=== PATIENT | male | born 1995 | race Hispanic/Latino ===

== ENCOUNTER 2017-01-17 09:45 | Emergency (ER) | payer SELFPAY ==
[~2017-01-17] VITALS: Ht 182.9 cm; Wt 90.9 kg
[2017-01-17 10:23] LABS: HEMATOCRIT 47.1 % (39.0-50.0); HEMOGLOBIN 15.9 g/dl (14.0-18.0); IMMATURE GRANULOCYTES 0.5 % (0.0-1.0); MEAN CELL VOLUME 82.5 fL CALC (80.0-100.0); MEAN CORPUSCULAR HGB 27.8 pG CALC (26.0-32.0); MEAN CORPUSCULAR HGB CONC 33.8 g/L CALC (32.0-36.0); NEUT# 14.57 thou/uL (1.82-7.42); RED BLOOD COUNT 5.71 mill/uL (4.70-6.10); RED CELL DISTRI WIDTH 12.7 % (11.5-15.5)
[2017-01-17 10:44] LABS: ALBUMIN 5.1 g/dL (3.2-5.0); ALKALINE PHOSPHATASE 114 u/l (38-126); AMYLASE 60 u/l (30-110); ANION GAP 19 (6-22 (CALC)); BILIRUBIN, TOTAL 0.8 mg/dL (0.0-1.4); BUN 12 mg/dL (9-20); BUN/CREATININE RATIO 15 (12-20 (CALC)); CALCIUM 10.1 mg/dL (8.4-10.2); CARBON DIOXIDE 22 mmol/l (22-30); CHLORIDE 105 mmol/l (95-108); CREATININE 0.8 mg/dL (0.7-1.3); GFR > 60 ML/MIN (>=60 (CALC)); GFR FOR AFR.AMER. > 60 ML/MIN (>=60 (CALC)); GLUCOSE 101 mg/dL (75-110); LIPASE 38 u/l (23-300); POTASSIUM 4.6 mmol/l (3.5-5.1); SGOT/AST 28 u/l (17-59); SGPT/ALT 38 u/l (21-72); SODIUM 142 mmol/l (137-146); TOTAL PROTEIN 9.5 g/dL (6.3-8.2)
[2017-01-17] MEDS ORDERED: ZOFRAN ODT4 MG PO (12:27)
[2017-01-17] MEDS ORDERED: CIPROFLOXACN500 MG PO (12:27)
[2017-01-17 12:28] VITALS: BP 139/63
== END 2017-01-17 12:41 | disposition home or self-care (01) | DRG 392 ==
LOC: ED 09:45
PROVIDERS: Emergency Medicine
DX: K52.9 Noninfective gastroenteritis and colitis, unspecified (principal)
CPT/HCPCS: Q9967

== ENCOUNTER 2017-01-30 14:40 | Emergency (ER) | payer SELFPAY ==
[~2017-01-30] VITALS: Ht 182.9 cm; Wt 109.0 kg
[~2017-01-30 14:40] MED LIST: CIPROFLOXACN500 MG PO; ZOFRAN ODT4 MG PO
[2017-01-30] MEDS ORDERED: AFRIN 12 HOUR0.05 % (15:07)
[2017-01-30] MEDS ORDERED: MOTRIN800 MG PO (15:07)
[2017-01-30 15:15] VITALS: BP 102/68
== END 2017-01-30 15:15 | disposition home or self-care (01) | DRG 153 ==
LOC: ED 14:40
DX: J06.9 Acute upper respiratory infection, unspecified (principal)

== ENCOUNTER 2018-06-15 10:24 | Emergency (ER) | payer SELFPAY ==
[~2018-06-15] VITALS: Ht 182.9 cm; Wt 100.0 kg
[~2018-06-15 10:24] MED LIST changes: +AFRIN 12 HOUR0.05 %; +MOTRIN800 MG PO
[2018-06-15 11:25] LABS: HEMOGLOBIN 14.9 g/dl (14.0-18.0); IMMATURE GRANULOCYTES 0.5 % (0.0-5.0); MEAN CELL VOLUME 83.7 fL CALC (80.0-100.0); MEAN CORPUSCULAR HGB 28.3 pG CALC (26.0-32.0); MEAN CORPUSCULAR HGB CONC 33.9 g/L CALC (32.0-36.0); NEUT# 14.7 thou/uL (1.82-7.42); RED BLOOD COUNT 5.26 mill/uL (4.70-6.10); RED CELL DISTRI WIDTH 12.5 % (11.5-15.5)
[2018-06-15 11:35] LABS: ALBUMIN 4.8 g/dL (3.2-5.0); ALKALINE PHOSPHATASE 75 u/l (38-126); ANION GAP 19 (6-22 (CALC)); BILIRUBIN, TOTAL 1.7 mg/dL (0.0-1.4); BUN 14 mg/dL (9-20); BUN/CREATININE RATIO 17 (12-20 (CALC)); CARBON DIOXIDE 20 mmol/l (22-30); CHLORIDE 108 mmol/l (95-108); CREATININE 0.9 mg/dL (0.7-1.3); GFR > 60 ML/MIN (>=60 (CALC)); GFR FOR AFR.AMER. > 60 ML/MIN (>=60 (CALC)); POTASSIUM 4.2 mmol/l (3.5-5.1); SGOT/AST 18 u/l (17-59); SGPT/ALT 33 u/l (21-72); SODIUM 142 mmol/l (137-146); TOTAL PROTEIN 8.6 g/dL (6.3-8.2)
[2018-06-15 12:54] LABS: URINE BILIRUBIN - DIPSTICK NEGATIVE (NEGATIVE); URINE BLOOD DIPSTICK LARGE (NEGATIVE); URINE COLOR YELLOW; URINE GLUCOSE - DIPSTICK NEGATIVE (NEGATIVE); URINE KETONE NEGATIVE (NEGATIVE); URINE LEUK ESTERASE NEGATIVE (NEGATIVE); URINE NITRITE - DIPSTICK NEGATIVE (Negative); URINE PROTEIN - DIPSTICK NEGATIVE (NEG-TRACE); URINE SPECIFIC GRAVITY 1.025; URINE UROBILINOGEN - DIPSTICK 0.2 E.U./dL (0.2)
[2018-06-15 12:55] LABS: URINE CLARITY SL CLOUDY
[2018-06-15 12:57] LABS: URINE MUCUS MANY hpf (NONE-FEW)
[2018-06-15] MEDS ORDERED: Levaquin PO (13:12)
[2018-06-15 13:38] VITALS: BP 115/58
== END 2018-06-15 14:05 | disposition home or self-care (01) | DRG 153 ==
LOC: ED 10:24
DX: H66.93 Otitis media, unspecified, bilateral (principal); M54.9 Dorsalgia, unspecified

== ENCOUNTER 2018-12-08 11:46 | Emergency (ER) | payer OTHER ==
[~2018-12-08] VITALS: Ht 182.9 cm; Wt 100.0 kg
[~2018-12-08 11:46] MED LIST changes: +Levaquin PO
[2018-12-08 12:31] LABS: HEMATOCRIT 42.5 % (39.0-50.0); HEMOGLOBIN 14.3 g/dl (14.0-18.0); IMMATURE GRANULOCYTES 0.2 % (0.0-5.0); MEAN CELL VOLUME 82.5 fL CALC (80.0-100.0); MEAN CORPUSCULAR HGB 27.8 pG CALC (26.0-32.0); MEAN CORPUSCULAR HGB CONC 33.6 g/L CALC (32.0-36.0); NEUT# 3.17 thou/uL (1.82-7.42); RED BLOOD COUNT 5.15 mill/uL (4.70-6.10); RED CELL DISTRI WIDTH 12.6 % (11.5-15.5)
[2018-12-08 12:46] LABS: ALBUMIN 4.5 g/dL (3.2-5.0); ALKALINE PHOSPHATASE 70 u/l (38-126); ANION GAP 16 (6-22 (CALC)); BILIRUBIN, TOTAL 2.1 mg/dL (0.0-1.4); BUN 13 mg/dL (9-20); BUN/CREATININE RATIO 16 (12-20 (CALC)); CARBON DIOXIDE 22 mmol/l (22-30); CHLORIDE 104 mmol/l (95-108); CREATININE 0.8 mg/dL (0.7-1.3); GFR > 60 ML/MIN (>=60 (CALC)); GFR FOR AFR.AMER. > 60 ML/MIN (>=60 (CALC)); POTASSIUM 4.2 mmol/l (3.5-5.1); SGOT/AST 24 u/l (17-59); SODIUM 137 mmol/l (137-146)
[2018-12-08] MEDS ORDERED: ZOFRAN ODT4 MG PO (12:52)
[2018-12-08 13:08] VITALS: BP 113/59
== END 2018-12-08 13:08 | disposition home or self-care (01) ==
LOC: ED 11:46
PROVIDERS: Family Medicine
DX: K52.9 Noninfective gastroenteritis and colitis, unspecified (principal); R11.2 Nausea with vomiting, unspecified; R19.7 Diarrhea, unspecified; R51 Headache; R10.13 Epigastric pain

== ENCOUNTER 2019-01-09 17:22 | Emergency (ER) | payer SELFPAY ==
[~2019-01-09] VITALS: Ht 182.9 cm; Wt 105.0 kg
[2019-01-09] MEDS ORDERED: KEFLEX500 M1 PO (18:15)
[2019-01-09 18:30] VITALS: BP 115/64
== END 2019-01-09 18:30 | disposition home or self-care (01) | DRG 605 ==
LOC: ED 17:22
PROC: 0HQGXZZ Repair Left Hand Skin, External Approach (ICD-10-PCS; principal; 2019-01-09)
DX: S61.211A Laceration without foreign body of left index finger without damage to nail, initial encounter (principal); W26.0XXA Contact with knife, initial encounter; Y93.89 Activity, other specified

== ENCOUNTER 2019-02-05 15:02 | Emergency (ER) | payer OTHER ==
[~2019-02-05] VITALS: Ht 182.9 cm; Wt 100.0 kg
[~2019-02-05 15:02] MED LIST changes: +KEFLEX500 M1 PO
[2019-02-05 16:19] LABS: HEMATOCRIT 45.4 % (39.0-50.0); HEMOGLOBIN 15.2 g/dl (14.0-18.0); IMMATURE GRANULOCYTES 0.6 % (0.0-5.0); MEAN CORPUSCULAR HGB 27.8 pG CALC (26.0-32.0); MEAN CORPUSCULAR HGB CONC 33.5 g/L CALC (32.0-36.0); NEUT# 9.13 thou/uL (1.82-7.42); RED BLOOD COUNT 5.47 mill/uL (4.70-6.10); RED CELL DISTRI WIDTH 12.9 % (11.5-15.5)
[2019-02-05 16:42] LABS: ALBUMIN 4.7 g/dL (3.2-5.0); ALKALINE PHOSPHATASE 85 u/l (38-126); ANION GAP 14 (6-22 (CALC)); BUN 11 mg/dL (9-20); BUN/CREATININE RATIO 15 (12-20 (CALC)); CARBON DIOXIDE 23 mmol/l (22-30); CHLORIDE 105 mmol/l (95-108); CREATININE 0.7 mg/dL (0.7-1.3); GFR > 60 ML/MIN (>=60 (CALC)); GFR FOR AFR.AMER. > 60 ML/MIN (>=60 (CALC)); LIPASE 35 u/l (23-300); POTASSIUM 3.9 mmol/l (3.5-5.1); SGOT/AST 28 u/l (17-59); SODIUM 139 mmol/l (137-146); TOTAL PROTEIN 8.3 g/dL (6.3-8.2)
[2019-02-05 17:42] LABS: URINE BILIRUBIN - DIPSTICK NEGATIVE (NEGATIVE); URINE BLOOD DIPSTICK MODERATE (NEGATIVE); URINE COLOR YELLOW; URINE GLUCOSE - DIPSTICK NEGATIVE (NEGATIVE); URINE KETONE NEGATIVE (NEGATIVE); URINE LEUK ESTERASE NEGATIVE (NEGATIVE); URINE NITRITE - DIPSTICK NEGATIVE (Negative); URINE PROTEIN - DIPSTICK NEGATIVE (NEG-TRACE); URINE UROBILINOGEN - DIPSTICK 0.2 E.U./dL (0.2)
[2019-02-05 17:57] LABS: URINE SQUAMOUS EPITHELIAL CELL FEW EPI/hpf (0-FEW)
[2019-02-05] MEDS ORDERED: RANITIDINE150 M1 PO (17:57)
[2019-02-05 18:10] VITALS: BP 111/57
== END 2019-02-05 18:10 | disposition home or self-care (01) ==
LOC: ED 15:02
PROVIDERS: Family Medicine
DX: K29.70 Gastritis, unspecified, without bleeding (principal); R31.9 Hematuria, unspecified; R10.13 Epigastric pain

== ENCOUNTER 2020-07-20 05:47 | Emergency (ER) | payer OTHER ==
[~2020-07-20] VITALS: Ht 182.9 cm; Wt 100.0 kg
[~2020-07-20 05:47] MED LIST changes: +RANITIDINE150 M1 PO
[2020-07-20 06:40] LABS: HEMATOCRIT 42.7 % (39.0-50.0); HEMOGLOBIN 14.1 g/dl (14.0-18.0); IMMATURE GRANULOCYTES 0.4 % (0.0-5.0); MEAN CELL VOLUME 84.1 fL CALC (80.0-100.0); MEAN CORPUSCULAR HGB 27.8 pG CALC (26.0-32.0); NEUT# 3.17 thou/uL (1.82-7.42); RED BLOOD COUNT 5.08 mill/uL (4.70-6.10)
[2020-07-20 06:54] LABS: ALBUMIN 4.5 g/dL (3.2-5.0); ALKALINE PHOSPHATASE 67 u/l (38-126); AMYLASE 54 u/l (30-110); ANION GAP 12 (6-22 (CALC)); BILIRUBIN, TOTAL 1.4 mg/dL (0.0-1.4); BUN 10 mg/dL (9-20); BUN/CREATININE RATIO 12 (12-20 (CALC)); CARBON DIOXIDE 23 mmol/l (22-30); CHLORIDE 104 mmol/l (95-108); CREATININE 0.8 mg/dL (0.7-1.3); GFR > 60 ML/MIN (>=60 (CALC)); GFR FOR AFR.AMER. > 60 ML/MIN (>=60 (CALC)); LIPASE 49 u/l (23-300); POTASSIUM 4.6 mmol/l (3.5-5.1); SGOT/AST 35 u/l (17-59); SODIUM 135 mmol/l (137-146); TOTAL PROTEIN 8.2 g/dL (6.3-8.2)
[2020-07-20] MEDS ORDERED: LOMOTIL2.5 MG PO (07:16)
[2020-07-20 07:20] VITALS: BP 115/64
== END 2020-07-20 07:31 | disposition home or self-care (01) ==
LOC: ED 05:47
PROVIDERS: Family Medicine
DX: K52.9 Noninfective gastroenteritis and colitis, unspecified (principal)

== ENCOUNTER 2020-09-03 13:04 | Emergency (ER) | payer OTHER ==
[~2020-09-03] VITALS: Ht 182.9 cm; Wt 100.0 kg
[~2020-09-03 13:04] MED LIST changes: +LOMOTIL2.5 MG PO
[2020-09-03 13:56] LABS: URINE BILIRUBIN - DIPSTICK NEGATIVE (NEGATIVE); URINE BLOOD DIPSTICK MODERATE (NEGATIVE); URINE COLOR YELLOW; URINE GLUCOSE - DIPSTICK NEGATIVE (NEGATIVE); URINE KETONE NEGATIVE (NEGATIVE); URINE LEUK ESTERASE NEGATIVE (Negative); URINE NITRITE - DIPSTICK NEGATIVE (Negative); URINE PROTEIN - DIPSTICK NEGATIVE (NEG-TRACE); URINE SPECIFIC GRAVITY 1.025; URINE UROBILINOGEN - DIPSTICK 0.2 E.U./dL (0.2)
[2020-09-03 13:57] LABS: URINE CLARITY SL CLOUDY
[2020-09-03 14:03] LABS: HEMATOCRIT 46.7 % (39.0-50.0); HEMOGLOBIN 15.8 g/dl (14.0-18.0); IMMATURE GRANULOCYTES 0.4 % (0.0-5.0); MEAN CELL VOLUME 82.8 fL CALC (80.0-100.0); MEAN CORPUSCULAR HGB CONC 33.8 g/dL CAL (32.0-36.0); NEUT# 11.43 thou/uL (1.82-7.42); RED BLOOD COUNT 5.64 mill/uL (4.70-6.10); RED CELL DISTRI WIDTH 12.9 % (11.5-15.5)
[2020-09-03 14:35] LABS: ALBUMIN 4.7 g/dL (3.2-5.0); ALKALINE PHOSPHATASE 78 u/l (38-126); ANION GAP 13 (6-22 (CALC)); BILIRUBIN, TOTAL 1.1 mg/dL (0.0-1.4); BUN 12 mg/dL (9-20); BUN/CREATININE RATIO 14 (12-20 (CALC)); CARBON DIOXIDE 26 mmol/l (22-30); CHLORIDE 104 mmol/l (95-108); CREATININE 0.9 mg/dL (0.7-1.3); GFR > 60 ML/MIN (>=60 (CALC)); GFR FOR AFR.AMER. > 60 ML/MIN (>=60 (CALC)); LIPASE 44 u/l (23-300); POTASSIUM 4.1 mmol/l (3.5-5.1); SGOT/AST 24 u/l (17-59); SODIUM 139 mmol/l (137-146); TOTAL PROTEIN 8.7 g/dL (6.3-8.2)
[2020-09-03] MEDS ORDERED: ZOFRAN4 MG/TAB PO (15:39)
[2020-09-03 16:04] VITALS: BP 117/51
== END 2020-09-03 16:14 | disposition home or self-care (01) ==
LOC: ED 13:04
DX: K29.70 Gastritis, unspecified, without bleeding (principal)

== ENCOUNTER 2020-10-08 10:50 | Emergency (ER) | payer OTHER ==
[~2020-10-08] VITALS: Ht 182.9 cm; Wt 108.0 kg
[~2020-10-08 10:50] MED LIST changes: +ZOFRAN4 MG/TAB PO
[2020-10-08 11:23] LABS: HEMATOCRIT 49.2 % (39.0-50.0); IMMATURE GRANULOCYTES 0.3 % (0.0-5.0); MEAN CELL VOLUME 83.8 fL CALC (80.0-100.0); MEAN CORPUSCULAR HGB 27.3 pG CALC (26.0-32.0); MEAN CORPUSCULAR HGB CONC 32.5 g/dL CAL (32.0-36.0); NEUT# 8.82 thou/uL (1.82-7.42); RED BLOOD COUNT 5.87 mill/uL (4.70-6.10); RED CELL DISTRI WIDTH 12.8 % (11.5-15.5)
[2020-10-08 11:50] LABS: ALBUMIN 4.9 g/dL (3.2-5.0); ALKALINE PHOSPHATASE 90 u/l (38-126); ANION GAP 16 (6-22 (CALC)); BUN 14 mg/dL (9-20); BUN/CREATININE RATIO 15 (12-20 (CALC)); CARBON DIOXIDE 24 mmol/l (22-30); CHLORIDE 104 mmol/l (95-108); CREATININE 0.9 mg/dL (0.7-1.3); GFR > 60 ML/MIN (>=60 (CALC)); GFR FOR AFR.AMER. > 60 ML/MIN (>=60 (CALC)); LIPASE 40 u/l (23-300); POTASSIUM 4.2 mmol/l (3.5-5.1); SGOT/AST 24 u/l (17-59); SODIUM 140 mmol/l (137-146); TOTAL PROTEIN 8.7 g/dL (6.3-8.2)
[2020-10-08 11:53] LABS: BILIRUBIN, TOTAL 1.9 mg/dL (0.0-1.4)
[2020-10-08 12:39] LABS: URINE BILIRUBIN - DIPSTICK NEGATIVE (NEGATIVE); URINE BLOOD DIPSTICK MODERATE (NEGATIVE); URINE COLOR YELLOW; URINE GLUCOSE - DIPSTICK NEGATIVE (NEGATIVE); URINE KETONE NEGATIVE (NEGATIVE); URINE LEUK ESTERASE NEGATIVE (NEGATIVE); URINE NITRITE - DIPSTICK NEGATIVE (Negative); URINE PH 5.5 (4.5-8.0); URINE PROTEIN - DIPSTICK NEGATIVE (NEG-TRACE); URINE SPECIFIC GRAVITY >=1.030; URINE UROBILINOGEN - DIPSTICK 0.2 E.U./dL (0.2)
[2020-10-08] MEDS ORDERED: ONDANSETRON4 MG PO ×2 (13:05→13:06)
[2020-10-08] MEDS ORDERED: PROTONIX40 M2 PO (13:10)
[2020-10-08 13:16] VITALS: BP 121/75
== END 2020-10-08 13:18 | disposition home or self-care (01) ==
LOC: ED 10:50
PROVIDERS: Family Medicine
DX: R10.13 Epigastric pain (principal)
CPT/HCPCS: Q9967

== ENCOUNTER 2020-12-23 23:31 | Emergency (ER) | payer OTHER ==
[~2020-12-23] VITALS: Ht 182.9 cm; Wt 95.5 kg
[~2020-12-23 23:31] MED LIST changes: +ONDANSETRON4 MG PO; +PROTONIX40 M2 PO
[2020-12-24 01:09] LABS: HEMATOCRIT 44.8 % (39.0-50.0); HEMOGLOBIN 14.7 g/dl (14.0-18.0); IMMATURE GRANULOCYTES 0.3 % (0.0-5.0); MEAN CELL VOLUME 83.6 fL CALC (80.0-100.0); MEAN CORPUSCULAR HGB 27.4 pG CALC (26.0-32.0); MEAN CORPUSCULAR HGB CONC 32.8 g/dL CAL (32.0-36.0); NEUT# 9.62 thou/uL (1.82-7.42); RED BLOOD COUNT 5.36 mill/uL (4.70-6.10); RED CELL DISTRI WIDTH 12.8 % (11.5-15.5)
[2020-12-24 01:19] LABS: ALBUMIN 4.8 g/dL (3.2-5.0); ALKALINE PHOSPHATASE 72 u/l (38-126); AMYLASE 62 u/l (30-110); ANION GAP 12 (6-22 (CALC)); BILIRUBIN, TOTAL 0.9 mg/dL (0.0-1.4); BUN 13 mg/dL (9-20); BUN/CREATININE RATIO 14 (12-20 (CALC)); CARBON DIOXIDE 30 mmol/l (22-30); CHLORIDE 100 mmol/l (95-108); GFR > 60 ML/MIN (>=60 (CALC)); GFR FOR AFR.AMER. > 60 ML/MIN (>=60 (CALC)); LIPASE 42 u/l (23-300); POTASSIUM 3.7 mmol/l (3.5-5.1); SGOT/AST 25 u/l (17-59); SODIUM 138 mmol/l (137-146); TOTAL PROTEIN 8.5 g/dL (6.3-8.2)
[2020-12-24 01:28] LABS: URINE BILIRUBIN - DIPSTICK NEGATIVE (NEGATIVE); URINE BLOOD DIPSTICK MODERATE (NEGATIVE); URINE COLOR YELLOW; URINE GLUCOSE - DIPSTICK NEGATIVE (NEGATIVE); URINE KETONE NEGATIVE (NEGATIVE); URINE LEUK ESTERASE NEGATIVE (NEGATIVE); URINE PROTEIN - DIPSTICK NEGATIVE (NEG-TRACE); URINE UROBILINOGEN - DIPSTICK 0.2 E.U./dL (0.2)
[2020-12-24 01:38] LABS: URINE NITRITE - DIPSTICK NEGATIVE (Negative)
[2020-12-24 01:50] LABS: URINE SQUAMOUS EPITHELIAL CELL FEW EPI/hpf (0-FEW); URINE WBC 0-2 WBC/hpf (0-5)
[2020-12-24 05:47] VITALS: BP 134/69
== END 2020-12-24 05:47 | disposition short-term general hospital (02) ==
LOC: ED 23:31
PROVIDERS: Family Medicine
DX: K35.80 Unspecified acute appendicitis (principal)
CPT/HCPCS: Q9967; S0164

== ENCOUNTER 2022-08-03 10:20 | Emergency (ER) | payer SELFPAY ==
[~2022-08-03] VITALS: Ht 188 cm; Wt 100.0 kg
[2022-08-03] MEDS ORDERED: TRAMADOL HYDROC50 M1 PO (10:51)
[2022-08-03] MEDS ORDERED: FLEXERIL5 M1 PO (10:51)
[2022-08-03] MEDS ORDERED: VOLTAREN1%GEL TOP (10:54)
[2022-08-03 11:02] VITALS: BP 115/73
== END 2022-08-03 11:09 | disposition home or self-care (01) | DRG 552 ==
LOC: ED 10:20
DX: M54.50 Low back pain, unspecified (principal); M62.830 Muscle spasm of back

== ENCOUNTER 2023-10-05 17:32 | Emergency (ER) | payer SELFPAY ==
[~2023-10-05] VITALS: Ht 188 cm; Wt 99.7 kg
[~2023-10-05 17:32] MED LIST changes: +FLEXERIL5 M1 PO; +TRAMADOL HYDROC50 M1 PO; +VOLTAREN1%GEL TOP
[2023-10-05] MEDS ORDERED: MAXITROL 0.1 %1 SUS OU (18:10)
[2023-10-05 18:22] VITALS: BP 133/87
== END 2023-10-05 18:23 | disposition home or self-care (01) | DRG 125 ==
LOC: ED 17:32
DX: S05.01XA Injury of conjunctiva and corneal abrasion without foreign body, right eye, initial encounter (principal)

== ENCOUNTER 2023-10-12 09:37 | Emergency (ER) | payer SELFPAY ==
[~2023-10-12] VITALS: Ht 182.9 cm; Wt 99.0 kg
[2023-10-12] VITALS (11 sets, daily range): BP systolic 117–140; BP diastolic 75–90
[~2023-10-12 09:37] MED LIST changes: +MAXITROL 0.1 %1 SUS OU
[2023-10-12] MEDS ORDERED: CVS MUCUS EXT1200 MG PO (11:56)
[2023-10-12] MEDS ORDERED: MOTRIN800 MG PO (11:56)
== END 2023-10-12 12:09 | disposition home or self-care (01) | DRG 153 ==
LOC: ED 09:37
DX: J02.9 Acute pharyngitis, unspecified (principal); Z20.822 Contact with and (suspected) exposure to COVID-19